=== PATIENT | male | born 1940 | race Caucasian/White ===

== ENCOUNTER → 2016-08-29 | Outpatient (CLI) | payer MEDICARE, BC ==
[~2016-08-29] MED LIST: ALBUTEROL0.83 MG/ML IH; ASPIRIN 32325 MG/TAB PO; CIPRO 500MG TA500 MG PO; CLARITIN 1010 MG/TAB PO; COLACE 100100 MG/CAP PO; FLAGYL500 MG PO; LINZESS145CAP PO; MEVACOR10 MG PO; MICROZIDE12.5 MG PO; MIRALAX PA17 GM/Dose PO; MIRAPEX 0.0.125 MG/T PO; MOBIC 7.5MG7.5 MG PO; MULTIVITAMINS1 TA1 PO; NEURONTIN300 MG/CAP PO; NEURONTIN600 MG/TAB PO; NORFLEX 10100 MG/TAB PO; PERCOCET 325 MG1 TA2 PO; RAPAFLO8 MG PO; SENNA8.6 MG PO; TYLENOL 325MG325 MG PO; ULTRAM 50MG TAB50 MG PO; VITAMINC500CH PO; ZANAFLEX2 MG PO; ZOFRAN 4MG T4 MG/TAB PO
== END ==
LOC: SUN.DIA 11:00
DX: E11.9 Type 2 diabetes mellitus without complications (principal); Z68.27 Body mass index [BMI] 27.0-27.9, adult; Z71.3 Dietary counseling and surveillance; E78.5 Hyperlipidemia, unspecified; I10 Essential (primary) hypertension; I73.9 Peripheral vascular disease, unspecified
CPT/HCPCS: G0108

== ENCOUNTER → 2016-09-18 | Outpatient (CLI) | payer MEDICARE, BC | LOC: SUN.DIA 11:00 | DX: E11.9 Type 2 diabetes mellitus without complications (principal); Z68.27 Body mass index [BMI] 27.0-27.9, adult; Z71.3 Dietary counseling and surveillance; I73.9 Peripheral vascular disease, unspecified; E78.5 Hyperlipidemia, unspecified; I10 Essential (primary) hypertension ==

== ENCOUNTER 2016-10-07 16:36 | Observation (INO) | payer MEDICARE, BC ==
[~2016-10-07] VITALS: Ht 180.3 cm; Wt 79.4 kg
[~2016-10-07 16:36] MED LIST changes: -ALBUTEROL0.83 MG/ML IH; -CIPRO 500MG TA500 MG PO; -CLARITIN 1010 MG/TAB PO; -FLAGYL500 MG PO; -LINZESS145CAP PO; -NORFLEX 10100 MG/TAB PO; -PERCOCET 325 MG1 TA2 PO; -SENNA8.6 MG PO; -VITAMINC500CH PO; -ZANAFLEX2 MG PO; -ZOFRAN 4MG T4 MG/TAB PO
[2016-10-07] MEDS ORDERED: PERCOCET 325 MG1 TA2 PO (17:17)
[2016-10-07] MEDS ORDERED: ALBUTEROL0.83 MG/ML IH (17:18)
[2016-10-07] MEDS ORDERED: CLARITIN 1010 MG/TAB PO (17:20)
[2016-10-07] MEDS ORDERED: SENNA8.6 MG PO (17:21)
[2016-10-07] MEDS ORDERED: VITAMINC500CH PO (17:22)
[2016-10-07] MEDS ORDERED: NORFLEX 10100 MG/TAB PO (17:23)
[2016-10-07] MEDS ORDERED: LINZESS145CAP PO (17:25)
[2016-10-07 17:31] LABS: BASO % 0.2 % (0.0-2.0); EOS % 0.1 % (0-4.0); GRAN # 10.4 (1.4-6.5); GRAN % 81.7 % (42.2-75.2); HEMATOCRIT 44.7 % (42.0-52.0); HEMOGLOBIN 15.8 g/dl (13.5-18.0); LYMPH # 1.1 (1.2-3.4); LYMPH % 8.9 % (20.0-51.0); MEAN CELL VOLUME 88 fl (80.0-100.0); MEAN CORPUSCULAR HEMOGLOBIN 31 pg (27.0-31.0); MEAN CORPUSCULAR HGB CONC 35 g/dl (33.0-37.0); MEAN PLATELET VOLUME 9.2 fl (7.4-10.4); MONO # 1.1 (0.1-0.6); MONO % 8.6 % (1.7-9.3); PLATELET COUNT 293 K/mm3 (130-400); RED BLOOD COUNT 5.06 M/mm3 (4.20-5.60); REDCELL DISTRIBUTION WIDTH-CV 13.5 % (11.5-14.5); WHITE BLOOD COUNT 12.8 K/mm3 (4.8-10.8)
[2016-10-07 17:47] LABS: ADJUSTED CALCIUM 10.6 mg/dL (8.4-10.2); ALANINE AMINOTRANSFERASE 26 U/L (21-72); ALBUMIN 4.8 gm/dL (3.5-5.0); ALKALINE PHOSPHATASE 94 U/L (50-136); ANION GAP 18 mmol/L (7-16); BILIRUBIN,TOTAL 1.3 mg/dL (0.0-1.0); BLOOD UREA NITROGEN 15 mg/dL (9-20); C-REACTIVE PROTEIN < 0.5 mg/dL (0.0-0.9); CALCIUM 11.2 mg/dL (8.4-10.2); CARBON DIOXIDE 24 mmol/L (22-30); CHLORIDE 98 mmol/L (98-107); CREATININE, serum 1.22 mg/dL (0.66-1.25); GLUCOSE 144 mg/dL (74-106); LIPASE 74 U/L (23-300); POTASSIUM 3.4 mmol/L (3.4-5.0); SODIUM 140 mmol/L (137-145); TOTAL PROTEIN 8.4 gm/dL (6.4-8.2)
[2016-10-07 17:55] LABS: TROPONIN-I < 0.012 ng/mL (0.000-0.034)
[2016-10-07 19:10] LABS: PH 7 (5-8); SQUAMOUS EPITHELIAL None Seen /hpf; URINE APPEARANCE Clear; URINE BACTERIA None Seen /hpf; URINE BILIRUBIN Negative (NEGATIVE); URINE BLOOD Negative (NEGATIVE); URINE COLOR Yellow; URINE GLUCOSE Negative (NEGATIVE); URINE KETONE Trace (NEGATIVE); URINE RBC 0-2 /hpf; URINE UROBILINOGEN Negative (NEGATIVE); URINE WBC 0-2 /hpf
[2016-10-07] MEDS ORDERED: FLAGYL500 MG PO (20:19)
[2016-10-07] MEDS ORDERED: CIPRO 500MG TA500 MG PO (20:19)
[2016-10-07] MEDS ORDERED: ZOFRAN 4MG T4 MG/TAB PO (20:19)
[2016-10-07 23:02] VITALS: BP 162/87; PULSE 87; TEMP 99.4
[2016-10-08 03:46] VITALS: BP 118/50; PULSE 66; TEMP 98.6
[2016-10-08 07:19] VITALS: BP 122/62; PULSE 88; TEMP 99
[2016-10-08 07:29] LABS: ADD PATHOLOGY DIFF REVIEW NO
[2016-10-08 07:33] LABS: HEMATOCRIT 38.7 % (42.0-52.0); MEAN CORPUSCULAR HGB CONC 34 g/dl (33.0-37.0); MEAN PLATELET VOLUME 9.3 fl (7.4-10.4); PLATELET COUNT 226 K/mm3 (130-400); RED BLOOD COUNT 4.18 M/mm3 (4.20-5.60); WHITE BLOOD COUNT 9.4 K/mm3 (4.8-10.8)
[2016-10-08 07:35] LABS: HEMOGLOBIN 13.1 g/dl (13.5-18.0); MEAN CELL VOLUME 93 fl (80.0-100.0); MEAN CORPUSCULAR HEMOGLOBIN 31 pg (27.0-31.0)
[2016-10-08 07:43] LABS: ADJUSTED CALCIUM 9.2 mg/dL (8.4-10.2); ALBUMIN 3.6 gm/dL (3.5-5.0); BILIRUBIN,TOTAL 0.9 mg/dL (0.0-1.0); CALCIUM 8.9 mg/dL (8.4-10.2); CREATININE, serum 1.26 mg/dL (0.66-1.25); MAGNESIUM 1.7 mg/dL (1.6-2.3); POTASSIUM 3.6 mmol/L (3.4-5.0); TOTAL PROTEIN 6.4 gm/dL (6.4-8.2)
[2016-10-08 10:52] LABS: ANISOCYTOSIS 1+; BAND 2 % (0-10); NEUTROPHILS 70 % (42.0-75.2); PLATELET ESTIMATE NORMAL (NORMAL); TOTAL CELLS COUNTED 100
[2016-10-08 11:30] VITALS: BP 120/57; PULSE 99; TEMP 97.8
[2016-10-08 15:57] VITALS: BP 124/54; PULSE 87; TEMP 98.3
[2016-10-08 19:23] VITALS: BP 120/45; PULSE 94; TEMP 97.7
[2016-10-08 23:31] VITALS: BP 124/68; PULSE 77; TEMP 98.1
[2016-10-09 04:36] VITALS: BP 135/61; PULSE 82; TEMP 98.5
[2016-10-09 08:27] VITALS: BP 116/77; PULSE 84; TEMP 98.3
== END 2016-10-09 13:59 | disposition home or self-care (01) ==
LOC: COL.ER 16:36 → MEDICAL 21:56
PROVIDERS: Emergency Medicine; Internal Medicine
DX: K52.9 Noninfective gastroenteritis and colitis, unspecified (principal); R00.0 Tachycardia, unspecified; I10 Essential (primary) hypertension; E78.5 Hyperlipidemia, unspecified; M51.36 Other intervertebral disc degeneration, lumbar region; K57.30 Diverticulosis of large intestine without perforation or abscess without bleeding; G89.29 Other chronic pain
CPT/HCPCS: G0378; J1644; J1650; J1956; J2270; J2405; J7030; Q9967

== ENCOUNTER → 2016-11-14 | Outpatient (CLI) | payer MEDICARE, BC ==
[~2016-11-14] MED LIST changes: +ALBUTEROL0.83 MG/ML IH; +CIPRO 500MG TA500 MG PO; +CLARITIN 1010 MG/TAB PO; +FLAGYL500 MG PO; +LINZESS145CAP PO; +NORFLEX 10100 MG/TAB PO; +PERCOCET 325 MG1 TA2 PO; +SENNA8.6 MG PO; +VITAMINC500CH PO; +ZANAFLEX2 MG PO; +ZOFRAN 4MG T4 MG/TAB PO
== END ==
LOC: COL.RAD 17:25
DX: J44.9 Chronic obstructive pulmonary disease, unspecified (principal)

== ENCOUNTER → 2016-12-18 | Outpatient (CLI) | payer MEDICARE, BC | LOC: SUN.DIA 11:20 | DX: E11.9 Type 2 diabetes mellitus without complications (principal); I73.9 Peripheral vascular disease, unspecified; I10 Essential (primary) hypertension; E78.5 Hyperlipidemia, unspecified; Z71.3 Dietary counseling and surveillance | CPT/HCPCS: G0108 ==

== ENCOUNTER 2016-12-24 11:19 | Observation (INO) | payer MEDICARE, BC ==
[2016-12-24] VITALS (9 sets, daily range): BP systolic 124–163; BP diastolic 55–82; PULSE 82–108; TEMP 98–98.2
[~2016-12-24] VITALS: Ht 175.3 cm; Wt 78.6 kg
[~2016-12-24 11:19] MED LIST changes: -ZANAFLEX2 MG PO
[2016-12-24] MEDS ORDERED: ZANAFLEX2 MG PO (13:29)
[2016-12-25 02:00] VITALS: BP 111/45; PULSE 86; TEMP 98.8
[2016-12-25 05:28] VITALS: BP 109/53; PULSE 103; TEMP 99.3
[2016-12-25 07:11] LABS: HEMATOCRIT 39.1 % (42.0-52.0); HEMOGLOBIN 13.3 g/dl (13.5-18.0); MEAN CELL VOLUME 92 fl (80.0-100.0); MEAN CORPUSCULAR HEMOGLOBIN 31 pg (27.0-31.0); MEAN CORPUSCULAR HGB CONC 34 g/dl (33.0-37.0); MEAN PLATELET VOLUME 9.4 fl (7.4-10.4); PLATELET COUNT 239 K/mm3 (130-400); RED BLOOD COUNT 4.26 M/mm3 (4.20-5.60); REDCELL DISTRIBUTION WIDTH-CV 13.1 % (11.5-14.5); WHITE BLOOD COUNT 11.5 K/mm3 (4.8-10.8)
[2016-12-25 10:09] VITALS: BP 126/68; PULSE 99; TEMP 98.7
[2016-12-25 13:30] VITALS: BP 127/82; PULSE 86; TEMP 98.2
[2016-12-25 18:53] VITALS: BP 135/57; PULSE 88; TEMP 98.8
[2016-12-25 21:36] VITALS: BP 138/69; PULSE 91; TEMP 98.3
[2016-12-26 01:47] VITALS: BP 107/63; BP 115/62; PULSE 87; PULSE 89; TEMP 99.3; TEMP 99.8
[2016-12-26 05:43] VITALS: BP 113/55; PULSE 84; TEMP 98.5
[2016-12-26 10:14] VITALS: BP 94/42; PULSE 85; TEMP 98.1
[2016-12-26 14:01] VITALS: BP 133/78; PULSE 94; TEMP 98.1
== END 2016-12-26 16:13 | disposition home or self-care (01) ==
LOC: SDCO 11:19 → SURG 16:35 → SDCO 12-25 13:30 → SURG 12-25 13:30
PROVIDERS: Urology
DX: C67.2 Malignant neoplasm of lateral wall of bladder (principal); N40.1 Benign prostatic hyperplasia with lower urinary tract symptoms; R35.0 Frequency of micturition; R39.12 Poor urinary stream; R35.1 Nocturia; E78.5 Hyperlipidemia, unspecified; I10 Essential (primary) hypertension; G25.81 Restless legs syndrome; M48.02 Spinal stenosis, cervical region; M54.16 Radiculopathy, lumbar region; E11.42 Type 2 diabetes mellitus with diabetic polyneuropathy; E78.00 Pure hypercholesterolemia, unspecified; I49.9 Cardiac arrhythmia, unspecified; Z87.891 Personal history of nicotine dependence; L57.0 Actinic keratosis
CPT/HCPCS: OP; G0378; J0690; J1100; J2270; J2405; J2704; J3010; J3480; J7030; J7120; Q9967

== ENCOUNTER → 2018-11-13 | Outpatient (CLI) | payer MEDICARE, BC ==
[~2018-11-13] MED LIST changes: +ZANAFLEX2 MG PO
== END ==
LOC: COL.RAD 14:27
DX: S46.011A Strain of muscle(s) and tendon(s) of the rotator cuff of right shoulder, initial encounter (principal); S46.111A Strain of muscle, fascia and tendon of long head of biceps, right arm, initial encounter; M89.311 Hypertrophy of bone, right shoulder; M19.011 Primary osteoarthritis, right shoulder

== ENCOUNTER 2020-03-22 08:34 | Day surgery (SDC) | payer MEDICARE, BC ==
[2020-03-22] VITALS (11 sets, daily range): BP systolic 112–141; BP diastolic 30–118; PULSE 59–90; TEMP 97.5–98.1
[~2020-03-22] VITALS: Ht 175.3 cm; Wt 81.7 kg
[~2020-03-22 08:34] MED LIST changes: +ASPIRIN E.C. 8181 MG PO; +FLOMAX 0.40.4 MG/CAP PO; +METAMUCIL3.4 GM/DOS PO; +MEVACOR 20M20 MG/TAB PO; +MULTIPLE VITAMI1 TA5 PO; -MULTIVITAMINS1 TA1 PO; +NORCO 325 MG-51 TAB PO; +OMNICEF 300MG300 MG PO; +SENNA-LAX8.6 MG PO; -SENNA8.6 MG PO
[2020-03-22] MEDS ORDERED: HCTZ 25MG TAB25 MG PO (09:16)
[2020-03-22] MEDS ORDERED: NEURONTIN300 MG/CAP PO (09:18)
[2020-03-22] MEDS ORDERED: B COMPLEX #11 TA1 (13:29)
--- NOTE | 2020-03-22 15:29 | NUR ---
Patient brought up from PACU. Patient had complaints of his feet being in pain and cold. Got him warm blankets for his feet. Patient requested a breakfast tray and tolerated it well. CBI is running at a slow rate. Vitals are stable on 2 L of oxygen via nasal cannula.
--- NOTE | 2020-03-22 18:30 | NUR ---
Patient resting in bed. Tolerated dinner well. CBI still running slow, pale yellow output. Patient has no complaints at this time.
--- NOTE | 2020-03-22 19:00 | NUR ---
Received report from Fernando. Pt currently resting in bed [id number] for the rest of us. Pt has his call light within reach.
[2020-03-23] VITALS: BP 132/55; PULSE 55; TEMP 98.6
[2020-03-23 00:02] VITALS: BP 132/55; PULSE 62; TEMP 98.6
--- NOTE | 2020-03-23 00:10 | NUR ---
Pt rested well during the night. Pt went to sleep around 2330. Pt urine is pink tinged. Pt has not complained of pain at all during the night. Pt has been drinking fluids well. Pt has his call light within reach.
[2020-03-23 04:27] VITALS: BP 123/43; PULSE 83; TEMP 98.2
--- NOTE | 2020-03-23 07:35 | NUR ---
Patient resting in bed finishing breakfast at this time. Patient is alert and oriented. Dailey in place per order with CBI running at a moderate/slow rate. Urine is pink and mostly clear, infrequent small clots visible in tubing. Patient denies pain or needs at this time, call light within reach.
[2020-03-23 07:49] VITALS: BP 128/59; PULSE 76; TEMP 98.5
--- NOTE | 2020-03-23 09:36 | NUR ---
Pt is very talkative today as instructions was given regarding mitomycin instillation and precautions. He is aware that the drug will be in his urine for 24 huors even after it is drained from his bladder. He did report that doctor had spoken with him about this treatment and verbalized agreement as well as signing his consent. Dailey catheter was drained of 350ml pink urine and then was clamped. Using the appropriate PPE and following chemotherapy precautions, I instilled the 40mg of mitomycin into his bladder without difficulty. We reviewed the importance of changing position about every 15 minutes to allow for all areas of the bladder to be treated. He was given printed information on mitomycin and chemotherapy precautions. Chemotherapy precautions were posted on doorway and supplies are available at the door. Report given to Barbara who was also the nurse who verified correct dose/route, volume with patients entered orders for mitomycin.
--- NOTE | 2020-03-23 10:33 | NUR ---
SW met with the patient to discuss discharge plan. The patient lives alone in [place]. He reports that he sponge bathes and is unable to get his bathroom on the first floor in time, so he urinates and poops in a litter box. The patient's PCP is Dr. Josh Pacheco and he receives his medications at [facility]. He reports no difficulties obtaining his meds. The patient does not have a DPOA-HC and he was not interested in completing a DPOA-HC at this time. The patient states that he is not . He states that he is unsure if he has any children and if so, if any of them are still alive. He states that he may have one daughter, Jacklyn, but does not know if she is alive and where she is at. He states that he has three living siblings: Hannah Lopez (ph#[phone]), Anne, and Nahun. He states that he only keeps in touch with Hannah. This SW had set the patient up with home health services through [facility] during his hospital stay in December. SW addressed this with the patient and if he would be interested in home health services again. The patient states that home health was a mistake last time and that it was not what he was looking for. He states that he is not interested in home health at this time. He states that he really just needs a roommate to help him pay rent. The patient plans to return home upon discharge. He states that his neighbor, Carrillo (ph#[phone]), is going to transport him home. JOSE then contacted and reviewed the d/c plan with the patient's sister, Hannah. Hannah lives in [place]. She states that the patient sometimes keeps her up-to-date with what is going on with him. She states that she is the only one that keeps in touch with the patient and that the patient does what he wants to do. JOSE attempted to contact the social and political studies professor, Sergio, at Dr. Guzman's office. JOSE left a message with the environmental health physician. JOSE made an APS report. Intake ID#[id number]
--- NOTE | 2020-03-23 10:46 | NUR ---
Pt was talking with foster care social worker at 10am check and now is asleep in his bed. I did not wake him up. he appears to be resting comfortably.
--- NOTE | 2020-03-23 11:15 | NUR ---
First visit from the art teacher. No needs right now.
--- NOTE | 2020-03-23 11:39 | NUR ---
Sergio, social media strategist, at Dr. Guzman's office returned JOSE's phone call. JOSE updated her on the patient and how he is refusing home health. Sergio reports that she will contact the patient tomorrow and will discuss home health and it's benefits again with him tomorrow. Sergio scheduled him a follow up appointment with Dr. Pacheco on Friday, 03/29, at 1000. JOSE notified the unit coordinator of the appointment.
[2020-03-23 11:55] VITALS: BP 127/64; PULSE 89; TEMP 98
--- NOTE | 2020-03-23 11:56 | NUR ---
Mitomycin drained from bladder at 1130 (300ml)and then flushed with CBI x700ml. Urine was light blue initially changing to light yellow with very sl ight pink tint. Pt tolerated this well and then tariq cath balloon was emptied of 30ml of fluid and catheter was easilly removed. Pericare provided at time of tariq dc but pt was also trying to eat his lunch so I did not make him reposition. All chemotherapy contaminated items were bagged and placed in the yellow chemotherapy disposal container. Chemotherapy PPE was worn. Pt reports he uses a litter box to void sometimes so he was strongly encouraged to use toilet if possible but to bag and dispose of any litter used with caution for chemotherapy exposure. He had read the information provided and verbalized understanding. I did report off to Barbara that tariq had been removed without issue and pt was wanting to know what he should do next to prepare for going home. Chemotherapy precautions are still posted and should remain in place until discharge.
--- NOTE | 2020-03-23 12:00 | NUR ---
Mitomycin instillation completed and catheter primed and pulled by the oncology nurse per orders. Patient educated on six cup routine and verbalizes understanding. First void was a small amount, light red and clear. Patient currently drinking water to attempt to complete routine, denies pain or needs, call light within reach.
--- NOTE | 2020-03-23 14:52 | NUR ---
Six cup routine completed. Urine remains light red and clear. Called patient's family to inform them of impending discharge. Patient denies further needs, call light within reach.
--- NOTE | 2020-03-23 16:05 | NUR ---
Discharge teaching completed. Discussed discharge instructions, discharge medications, and follow up appointments. Questions asked and answered. INT removed, catheter intact, hemostasis achieved. Patient dressed and gathered belongings, patient confirmed all belongings were present. Patient escorted to admissions entrance via wheel chair where he entered a private vehicle.
== END 2020-03-23 16:05 | disposition home or self-care (01) ==
LOC: SDCO 08:34 → SURG 11:48 → SDCO 12:00
DX: C67.2 Malignant neoplasm of lateral wall of bladder (principal); Z20.828 Contact with and (suspected) exposure to other viral communicable diseases; E78.5 Hyperlipidemia, unspecified; E11.22 Type 2 diabetes mellitus with diabetic chronic kidney disease; M19.90 Unspecified osteoarthritis, unspecified site; I12.9 Hypertensive chronic kidney disease with stage 1 through stage 4 chronic kidney disease, or unspecified chronic kidney disease; N18.30 Chronic kidney disease, stage 3 unspecified; L57.0 Actinic keratosis; N40.0 Benign prostatic hyperplasia without lower urinary tract symptoms; E78.00 Pure hypercholesterolemia, unspecified; I10 Essential (primary) hypertension; G25.81 Restless legs syndrome; Z87.891 Personal history of nicotine dependence; E11.42 Type 2 diabetes mellitus with diabetic polyneuropathy
CPT/HCPCS: OP; J0690; J1100; J1885; J2405; J2704; J3010; J7120; J9280; Q9967

== ENCOUNTER → 2023-08-06 | Outpatient (CLI) | payer MEDICARE, BC ==
[~2023-08-06] MED LIST changes: +B COMPLEX #11 TA1; +HCTZ 25MG TAB25 MG PO; +HCTZ12.5TAB PO; +Iohexol 300 - 10 ML VIAL IV ONE; +MIRALAX119G PO; +MIRAPEX0.25 MG PO; +MOBIC15 MG PO; +ONE-A-DAY ESSE1 EACH PO; +PYRIDIUM 100MG100 MG PO; +ROBAXIN 75750 MG/TAB PO; +SENOKOT8.6 MG PO; +Triamcinolone 40 MG/ML 1 ML VIAL IJ ONE
== END ==
LOC: COL.RAD 11:56
DX: M25.551 Pain in right hip (principal)
CPT/HCPCS: J0665; J3301; Q9967